=== PATIENT | female | born 1940 | race African-American/Black ===

== ENCOUNTER 2017-05-20 14:03 | Inpatient (IN) | payer MEDICARE, OTHER ==
[2017-05-20] VITALS (8 sets, daily range): BP systolic 93–151; BP diastolic 69–96
[~2017-05-20] VITALS: Ht 170.2 cm; Wt 73.9 kg
--- NOTE | 2017-05-20 14:57 | Emergency Room Report ---
History of Present Illness General Chief Complaint: Dyspnea/Respdistress Source: Patient, Family Member Present Illness HPI Patient presents with 3 days of dyspnea. She states she is out of breath even at rest. She denies any fever or cough. She does feel palpitations in her chest. Has never had this before. The patient had a stroke. At that time she did not have an irregular heartbeat and never has had an irregular heartbeat. She's not taking blood thinners this time. The stroke affected her vision and also her speech. She has good strength in all extremities. Treated for hypertension. The patient denies any chest pain, nausea, vomiting, dysuria, dizziness, rashes , easy bruising, headache. She is anxious to be in hospital. Allergies: Coded Allergies: No Known Allergies (Unverified , 05/20/17) Patient History Past Medical History: see triage record Social History: Denies: smoking Social History Narrative with daughter Reviewed Nursing Documentation: PMH: Agreed, PSxH: Agreed Nursing Documentation-PMH Past Medical History: No History, Except For Review of Systems All Other Systems: negative except mentioned in HPI Physical Exam Vital Signs Date Time Temp Pulse Resp B/P Pulse Ox O2 Delivery O2 Flow Rate FiO2 05/20/17 14:25 99.0 157 33 134/105 97 Room Air Sp02 EP Interpretation: reviewed, normal General Appearance: well appearing, no apparent distress, GCS 15 Head: normocephalic Eyes: bilateral eye normal inspection, bilateral eye other - arcus ENT: moist mucus membranes Neck: supple Respiratory: lungs clear, normal breath sounds Cardiovascular #1: tachycardia, irregularly irregular Cardiovascular #2: 2+ radial (R) Gastrointestinal: normal inspection, normal bowel sounds, non tender, no mass, non-distended Musculoskeletal: back normal, gait/station normal, normal range of motion Neurologic: alert, motor strength/tone normal, DTRs symmetric, sensory intact, cerebellar normal, normal gait, speech normal, oriented - X2 Psychiatric: anxious - somewhat spotty recent memory Skin: normal inspection, warm/dry Medical Decision Making Diagnostic Impression: Primary Impression: New onset atrial fibrillation with rapid ventricular response Additional Impressions: UTI (urinary tract infection) Qualified Codes: N30.00 - Acute cystitis without hematuria Status post stroke ER Course Patient presents with rapid atrial fibrillation. He fluid acute heart attack. In addition to that we to slow rate. He to check electrolytes and troponin. Diltiazem is been ordered. The patient has a nonfocal neurologic exam at this time. Initial EKG without acute injury. Other labs with pyuria, leukocytosis, min renal insufficiency. Given diltiazem with decrease in heart rate. Repeat EKG still a fib. No injury. Patient states still feels dyspneic. Exam against PE. Due to age, new onset a fib, continued symptoms, admit telemetry. Admit tele Dr. Kwok. Laboratory Tests Test 05/20/17 15:05 05/20/17 18:36 White Blood Count 12.6 K/UL (4.8-10.8) H Red Blood Count 4.32 M/UL (4.20-5.40) Hemoglobin 13.1 G/DL (12.0-16.0) Hematocrit 39.7 % (37.0-47.0) Mean Corpuscular Volume 92 FL (80-99) Mean Corpuscular Hemoglobin 30.2 PG (27.0-31.0) Mean Corpuscular Hemoglobin Concent 32.9 G/DL (32.0-36.0) Red Cell Distribution Width 14.9 % (11.6-14.8) H Platelet Count 240 K/UL (150-450) Mean Platelet Volume 8.5 FL (6.5-10.1) Neutrophils (%) (Auto) 73.7 % (45.0-75.0) Lymphocytes (%) (Auto) 17.6 % (20.0-45.0) L Monocytes (%) (Auto) 6.2 % (1.0-10.0) Eosinophils (%) (Auto) 1.4 % (0.0-3.0) Basophils (%) (Auto) 1.0 % (0.0-2.0) Prothrombin Time 9.3 SEC (9.30-11.50) Prothrombin Time INR 0.9 (0.9-1.1) PTT 24 SEC (23-33) Sodium Level 143 mEQ/L (135-145) Potassium Level 4.0 mEQ/L (3.4-4.9) Chloride Level 103 mEQ/L (98-107) Carbon Dioxide Level 27 mEQ/L (20-30) Anion Gap 13 (5-15) Blood Urea Nitrogen 15 mg/dL (7-23) Creatinine 1.0 mg/dL (0.5-0.9) H Estimate Glomerular Filtration Rate mL/min (>60) Glucose Level 144 mg/dL (74-106) H Calcium Level 9.4 mg/dL (8.6-10.2) Total Bilirubin < 0.2 mg/dL (0.0-1.2) Aspartate Amino Transferase (AST) 20 U/L (5-40) Alanine Aminotransferase (ALT) 11 U/L (3-33) Alkaline Phosphatase 81 U/L (35-104) Total Creatine Kinase 93 U/L (26-140) Troponin I < 0.30 ng/mL (<=0.30) Pro-B-Type Natriuretic Peptide 670 pg/mL (0-450) H Total Protein 7.3 g/dL (6.6-8.7) Albumin 3.9 g/dL (3.5-5.2) Globulin 3.4 g/dL Albumin/Globulin Ratio 1.1 (1.0-2.7) Urine Color Pale yellow Urine Appearance Slightly cloudy Urine pH 7 (4.5-8.0) Urine Specific [place] 1.005 (1.005-1.035) Urine Protein Negative (NEGATIVE) Urine Glucose (UA) Negative (NEGATIVE) Urine Ketones Negative (NEGATIVE) Urine Occult Blood Negative (NEGATIVE) Urine Nitrite Negative (NEGATIVE) Urine Bilirubin Negative (NEGATIVE) Urine Urobilinogen Normal MG/DL (0.0-1.0) Urine Leukocyte Esterase 3+ (NEGATIVE) H Urine RBC 2-4 /HPF (0 - 2) H Urine WBC 20-30 /HPF (0 - 2) H Urine Squamous Epithelial Cells Few /LPF (NONE/OCC) Urine Bacteria Few /HPF (NONE) EKG Diagnostic Results Rate: tachycardiac Rhythm: other - a fib ST Segments: no acute changes Other Impression Repeat EKG post deltiazem - A fib rate 109 - NSSTTW changes Rhythm Strip Diag. Results EP Interpretation: yes Rhythm: no PVC's, no ectopy, other - a fib RVR Chest X-Ray Diagnostic Results Chest X-Ray Diagnostic Results : Chest X-Ray Ordered: Yes # of Views/Limited/Complete: 1 View Indication: Other EP Interpretation: Yes Interpretation: no consolidation, no effusion, no pneumothorax, no acute cardiopulmonary disease Impression: No acute disease Interpreting ER Provider: Electronically signed by Tanner Rodríguez MD Last Vital Signs Date Time Temp Pulse Resp B/P Pulse Ox O2 Delivery O2 Flow Rate FiO2 05/20/17 21:27 98.6 83 20 125/69 98 Nasal Cannula 2.0 Status: improved Disposition: ADMITTED INPATIENT Condition: Serious Tanner Rodríguez M.D. May 20, 2017 14:57
[2017-05-20] MEDS ORDERED: Diltiazem 25mg/5ml IV ONE (15:00)
[2017-05-20 15:34] LABS: EOSINOPHILS % (AUTO) 1.4 % (0.0-3.0); LYMPHOCYTES % (AUTO) 17.6 % (20.0-45.0); MEAN CORPUSCULAR HEMOGLOBIN 30.2 PG (27.0-31.0); MEAN CORPUSCULAR HGB CONC 32.9 G/DL (32.0-36.0); MEAN CORPUSCULAR VOLUME 92 FL (80-99); MEAN PLATELET VOLUME 8.5 FL (6.5-10.1); MONOCYTES % (AUTO) 6.2 % (1.0-10.0); NEUTROPHILS % (AUTO) 73.7 % (45.0-75.0); PLATELET COUNT 240 K/UL (150-450); RED BLOOD COUNT 4.32 M/UL (4.20-5.40); RED CELL DISTRIBUTION WIDTH 14.9 % (11.6-14.8); WHITE BLOOD COUNT 12.6 K/UL (4.8-10.8)
--- NOTE | 2017-05-20 15:36 | Diagnostic Imaging Report ---
Indication: S. Comparison: None A single view chest radiograph was obtained. Findings: No definite infiltrate or pulmonary vascular congestion identified. The heart is enlarged. The aorta is mildly enlarged consistent with atherosclerotic vascular disease. The bones are osteopenic. Impression: No acute disease
[2017-05-20 15:39] LABS: INR 0.9 (0.9-1.1); PROTHROMBIN TIME 9.3 SEC (9.30-11.50)
[2017-05-20 15:51] LABS: TROPONIN I < 0.30 ng/mL (<=0.30)
[2017-05-20 15:55] LABS: ALANINE AMINOTRANSFERASE 11 U/L (3-33); ALBUMIN/GLOBULIN RATIO 1.1 (1.0-2.7); ANION GAP 13 (5-15); ASPARTATE AMINO TRANSFERASE 20 U/L (5-40); CALCIUM 9.4 mg/dL (8.6-10.2); CARBON DIOXIDE 27 mEQ/L (20-30); CHLORIDE 103 mEQ/L (98-107); HEMOLYSIS 46; SODIUM 143 mEQ/L (135-145); TOTAL PROTEIN 7.3 g/dL (6.6-8.7)
[2017-05-20] MEDS ORDERED: VERAPAMIL ER180 M1 PO (16:41)
[2017-05-20] MEDS ORDERED: CLOPIDOGREL75 MG ORAL (16:41)
[2017-05-20] MEDS ORDERED: HYDROCHLOROTHIA25 MG ORAL (16:41)
[2017-05-20] MEDS ORDERED: LORATADINE10 M2 PO (16:41)
[2017-05-20] MEDS ORDERED: LISINOPRIL40 MG ORAL (16:41)
[2017-05-20] MEDS ORDERED: PROTONIX20 MG ORAL (16:41)
[2017-05-20] MEDS ORDERED: PRAVASTATIN SOD20 M1 ORAL (16:41)
[2017-05-20] MEDS ORDERED: MONTELUKAST SOD10 MG ORAL (16:41)
[2017-05-20] MEDS ORDERED: LORazepam Inj 2mg/ml 1ml IV ONE (17:30)
[2017-05-20 18:51] LABS: APPEARANCE,URINE SLIGHTLY CLOUDY; KETONES,URINE NEGATIVE (NEGATIVE); LEUKOCYTE ESTERASE ,URINE 3+ (NEGATIVE); NITRITE,URINE NEGATIVE (NEGATIVE); PH,URINE 7 (4.5-8.0); PROTEIN,URINE NEGATIVE (NEGATIVE); UROBILINOGEN,URINE NORMAL MG/DL (0.0-1.0)
[2017-05-20 19:03] LABS: BACTERIA,URINE FEW /HPF; SQUAMOUS EPITHELIAL CELL,UR FEW /LPF (NONE/OCC); WBC,URINE 20-30 /HPF (0 - 2)
[2017-05-21] VITALS (7 sets, daily range): BP systolic 132–151; BP diastolic 62–90
[2017-05-21] MEDS ORDERED: Norco 5mg/325mg tab ORAL PRN (00:45)
[2017-05-21] MEDS ORDERED: LORazepam 0.5mg tab ORAL PRN (00:45)
[2017-05-21] MEDS ORDERED: Norco 10mg/325mg tab ORAL PRN (00:45)
[2017-05-21] MEDS: DuoNeb 0.5-3(2.5)mg/3ml neb HHN PRN (05:10)
[2017-05-21] MEDS ORDERED: cefTRIAXone 1 GM in D5W 55 ML IVPB ONE (05:30)
[2017-05-21] MEDS ORDERED: Heparin 5000 units/ml inj SUBQ SCH (09:00)
--- NOTE | 2017-05-21 10:11 | History and Physical ---
History of Present Illness General Date patient seen: May 21, 2017 Reason for Hospitalization: Dyspnea/Respdistress Present Illness HPI 77 y/o female with history of stroke,HTN, and hyperlipidemia presented to the ED c/o shortness of breath for last several days. She denies chest pain, palpitations, or cough. She denies fever/chills. She denies having any history of cardiac arrhythmias. Patient is confused and unable to give a good history. Allergies: Coded Allergies: No Known Allergies (Unverified , 05/20/17) Medication History Scheduled Clopidogrel* (Clopidogrel*), 75 MG ORAL DAILY, (Reported) Hydrochlorothiazide* (Hydrochlorothiazide*), 25 MG ORAL DAILY, (Reported) Lisinopril* (Lisinopril*), 40 MG ORAL DAILY, (Reported) Loratadine (Loratadine), 10 MG PO DAILY, (Reported) Montelukast Sodium* (Montelukast Sodium*), 10 MG ORAL DAILY, (Reported) Pantoprazole Sodium (Protonix), 40 MG ORAL DAILY, (Reported) Pravastatin Sod* (Pravastatin Sod*), 40 MG ORAL BEDTIME, (Reported) Verapamil Hcl (Verapamil Er), 180 MG PO DAILY, (Reported) Patient History History Provided By: Patient, Medical Record Healthcare decision maker Resuscitation status Full Code Advanced Directive on File Past Medical/Surgical History Past Medical/Surgical History: (1) Status post stroke (2) HTN (hypertension) (3) Hyperlipidemia Review of Systems All Other Systems: negative except mentioned in HPI ROS Narrative limited due to patient's mental status. Physical Exam General Appearance: WD/WN, no apparent distress, alert, confused HEENT: normocephalic, atraumatic Respiratory/Chest: decreased breath sounds Cardiovascular/Chest: regularly irregular Abdomen: non tender, soft Extremities: moderate edema Neurologic: alert, responsive Last 24 Hour Vital Signs Date Time Temp Pulse Resp B/P Pulse Ox O2 Delivery O2 Flow Rate FiO2 05/21/17 08:06 117 22 Room Air 2.0 05/21/17 07:47 97.8 95 20 132/62 100 Nasal Cannula 2.0 05/21/17 05:17 66 20 99 Nasal Cannula 2.0 28 05/21/17 05:14 28 05/21/17 05:12 64 20 99 Nasal Cannula 2.0 05/21/17 04:00 71 05/21/17 04:00 97.2 73 18 134/81 97 Nasal Cannula 2.0 05/21/17 00:30 97.0 75 20 138/72 99 Nasal Cannula 2.0 05/21/17 00:00 79 05/20/17 23:44 70 05/20/17 22:00 97.0 112 20 151/86 100 Nasal Cannula 2.0 05/20/17 21:30 97.0 112 20 151/86 100 Nasal Cannula 2.0 05/20/17 21:27 97.7 83 20 125/69 98 Nasal Cannula 2.0 05/20/17 20:30 103 20 135/96 96 Room Air 05/20/17 19:30 104 20 127/91 97 Room Air 05/20/17 18:58 99.0 92 26 128/75 94 Room Air 05/20/17 17:45 99.0 105 23 145/79 97 Room Air 05/20/17 15:21 99.0 116 19 93/79 97 Room Air 05/20/17 15:12 178 93/79 05/20/17 14:30 173 31 Room Air 05/20/17 14:30 99.0 173 31 133/84 96 Room Air 05/20/17 14:25 99.0 157 33 134/105 97 Room Air Intake and Output 05/20/17 05/21/17 19:00 07:00 Intake Total 0 ml 550 ml Balance 0 ml 550 ml Intake Oral 0 ml IV Total 550 ml # Voids 4 Laboratory Tests Test 05/20/17 15:05 05/20/17 18:36 White Blood Count 12.6 K/UL (4.8-10.8) H Red Blood Count 4.32 M/UL (4.20-5.40) Hemoglobin 13.1 G/DL (12.0-16.0) Hematocrit 39.7 % (37.0-47.0) Mean Corpuscular Volume 92 FL (80-99) Mean Corpuscular Hemoglobin 30.2 PG (27.0-31.0) Mean Corpuscular Hemoglobin Concent 32.9 G/DL (32.0-36.0) Red Cell Distribution Width 14.9 % (11.6-14.8) H Platelet Count 240 K/UL (150-450) Mean Platelet Volume 8.5 FL (6.5-10.1) Neutrophils (%) (Auto) 73.7 % (45.0-75.0) Lymphocytes (%) (Auto) 17.6 % (20.0-45.0) L Monocytes (%) (Auto) 6.2 % (1.0-10.0) Eosinophils (%) (Auto) 1.4 % (0.0-3.0) Basophils (%) (Auto) 1.0 % (0.0-2.0) Prothrombin Time 9.3 SEC (9.30-11.50) Prothromb Time International Ratio 0.9 (0.9-1.1) Activated Partial Thromboplast Time 24 SEC (23-33) Sodium Level 143 mEQ/L (135-145) Potassium Level 4.0 mEQ/L (3.4-4.9) Chloride Level 103 mEQ/L (98-107) Carbon Dioxide Level 27 mEQ/L (20-30) Anion Gap 13 (5-15) Blood Urea Nitrogen 15 mg/dL (7-23) Creatinine 1.0 mg/dL (0.5-0.9) H Estimat Glomerular Filtration Rate mL/min (>60) Glucose Level 144 mg/dL (74-106) H Calcium Level 9.4 mg/dL (8.6-10.2) Total Bilirubin < 0.2 mg/dL (0.0-1.2) Aspartate Amino Transf (AST/SGOT) 20 U/L (5-40) Alanine Aminotransferase (ALT/SGPT) 11 U/L (3-33) Alkaline Phosphatase 81 U/L (35-104) Total Creatine Kinase 93 U/L (26-140) Troponin I < 0.30 ng/mL (<=0.30) Pro-B-Type Natriuretic Peptide 670 pg/mL (0-450) H Total Protein 7.3 g/dL (6.6-8.7) Albumin 3.9 g/dL (3.5-5.2) Globulin 3.4 g/dL Albumin/Globulin Ratio 1.1 (1.0-2.7) Urine Color Pale yellow Urine Appearance Slightly cloudy Urine pH 7 (4.5-8.0) Urine Specific [place] 1.005 (1.005-1.035) Urine Protein Negative (NEGATIVE) Urine Glucose (UA) Negative (NEGATIVE) Urine Ketones Negative (NEGATIVE) Urine Occult Blood Negative (NEGATIVE) Urine Nitrite Negative (NEGATIVE) Urine Bilirubin Negative (NEGATIVE) Urine Urobilinogen Normal MG/DL (0.0-1.0) Urine Leukocyte Esterase 3+ (NEGATIVE) H Urine RBC 2-4 /HPF (0 - 2) H Urine WBC 20-30 /HPF (0 - 2) H Urine Squamous Epithelial Cells Few /LPF (NONE/OCC) Urine Bacteria Few /HPF (NONE) Height (Feet): 5 Height (Inches): 7.00 Weight (Pounds): 163 Medications Current Medications Medications (Trade) Dose Ordered Sig/Yifan Route PRN Reason Start Time Stop Time Status Last Admin Dose Admin Acetaminophen (Tylenol) 650 mg Q4H PRN ORAL Mild Pain/Temp > 100.5 05/21/17 00:45 06/20/17 00:44 Acetaminophen/ Hydrocodone Bitart ([place] 10/325) 1 ea Q4H PRN ORAL Severe Pain (Pain Scale 7-10) 05/21/17 00:45 05/28/17 00:44 Acetaminophen/ Hydrocodone Bitart ([place] 5/325) 1 tab Q4H PRN ORAL Moderate Pain (Pain Scale 4-6) 05/21/17 00:45 05/28/17 00:44 Albuterol/ Ipratropium (DuoNeb 0.5-3(2.5)mg/3ml) 3 ml Q4H PRN HHN Shortness of Breath 05/21/17 00:45 05/26/17 00:44 05/21/17 05:10 Clonidine HCl (Catapres) 0.1 mg Q6H PRN ORAL For High Blood Pressure 05/21/17 00:45 06/20/17 00:44 Heparin Sodium (Porcine) (Heparin 5000 units/ml) 5,000 units EVERY 12 HOURS SUBQ 05/21/17 09:00 06/20/17 08:59 Lorazepam (Ativan) 0.5 mg Q6H PRN ORAL Agitation 05/21/17 00:45 05/28/17 00:44 Sodium Chloride (Sodium Chloride 1000ml bag) 1,000 ml @ 100 mls/hr Q10H IV 05/20/17 15:00 06/19/17 14:59 05/21/17 01:30 Assessment/Plan Problem List: (1) New onset a-fib ICD Codes: I48.91 - Unspecified atrial fibrillation SNOMED: 73278642 (2) UTI (urinary tract infection) ICD Codes: N39.0 - Urinary tract infection, site not specified SNOMED: 75539003 Qualifiers: Qualified Codes: N30.00 - Acute cystitis without hematuria (3) Status post stroke ICD Codes: Z86.73 - Personal history of transient ischemic attack (TIA), and cerebral infarction without residual deficits SNOMED: 194317275 (4) HTN (hypertension) ICD Codes: I10 - Essential (primary) hypertension SNOMED: 38574730 (5) Hyperlipidemia ICD Codes: E78.5 - Hyperlipidemia, unspecified SNOMED: 06440062 Assessment/Plan f/u ucx. empiric Rocephin. Dr. Brown consulted for cardio/EP. Check Echo. DVT ppx. resume home meds. D/w Dr. Kwok. D/w RN. MIKE COLON May 21, 2017 10:11
[2017-05-21 10:28] LABS: BASOPHILS % (AUTO) 0.5 % (0.0-2.0); EOSINOPHILS % (AUTO) 1.1 % (0.0-3.0); LYMPHOCYTES % (AUTO) 15.2 % (20.0-45.0); MEAN CORPUSCULAR HEMOGLOBIN 29.3 PG (27.0-31.0); MEAN CORPUSCULAR HGB CONC 31.6 G/DL (32.0-36.0); MEAN CORPUSCULAR VOLUME 93 FL (80-99); MEAN PLATELET VOLUME 8.7 FL (6.5-10.1); MONOCYTES % (AUTO) 7.7 % (1.0-10.0); NEUTROPHILS % (AUTO) 75.5 % (45.0-75.0); PLATELET COUNT 229 K/UL (150-450); RED BLOOD COUNT 3.94 M/UL (4.20-5.40); RED CELL DISTRIBUTION WIDTH 14.8 % (11.6-14.8); WHITE BLOOD COUNT 9.3 K/UL (4.8-10.8)
[2017-05-21 10:55] LABS: ANION GAP 11 (5-15); CALCIUM 8.9 mg/dL (8.6-10.2); CARBON DIOXIDE 28 mEQ/L (20-30); CHLORIDE 105 mEQ/L (98-107); CREATININE 0.9 mg/dL (0.5-0.9); HEMOLYSIS 1; POTASSIUM 3.5 mEQ/L (3.4-4.9); SODIUM 144 mEQ/L (135-145)
--- NOTE | 2017-05-21 14:44 | Cardiac Electrophysiology PN ---
Subjective Subjective [id number]. Atrial fib with RVR. Xarelto< metoprolol and Flecainide. Nuclear stress test on Tuesday. ECho pending. Objective Last 24 Hour Vital Signs Date Time Temp Pulse Resp B/P Pulse Ox O2 Delivery O2 Flow Rate FiO2 05/21/17 11:27 97.6 91 20 132/89 100 Nasal Cannula 2.0 05/21/17 08:06 117 22 Room Air 2.0 05/21/17 08:00 156 05/21/17 07:47 97.8 95 20 132/62 100 Nasal Cannula 2.0 05/21/17 05:17 66 20 99 Nasal Cannula 2.0 28 05/21/17 05:14 28 05/21/17 05:12 64 20 99 Nasal Cannula 2.0 28 05/21/17 04:00 71 05/21/17 04:00 97.2 73 18 134/81 97 Nasal Cannula 2.0 05/21/17 00:30 97.0 75 20 138/72 99 Nasal Cannula 2.0 05/21/17 00:00 79 05/20/17 23:44 70 05/20/17 22:00 97.0 112 20 151/86 100 Nasal Cannula 2.0 05/20/17 21:30 97.0 112 20 151/86 100 Nasal Cannula 2.0 05/20/17 21:27 97.7 83 20 125/69 98 Nasal Cannula 2.0 05/20/17 20:30 103 20 135/96 96 Room Air 05/20/17 19:30 104 20 127/91 97 Room Air 05/20/17 18:58 99.0 92 26 128/75 94 Room Air 05/20/17 17:45 99.0 105 23 145/79 97 Room Air 05/20/17 15:21 99.0 116 19 93/79 97 Room Air 05/20/17 15:12 178 93/79 Intake and Output 05/20/17 05/21/17 19:00 07:00 Intake Total 0 ml 550 ml Balance 0 ml 550 ml Intake Oral 0 ml IV Total 550 ml # Voids 4 Laboratory Tests Test 05/20/17 15:05 05/20/17 18:36 05/21/17 09:42 White Blood Count 12.6 K/UL (4.8-10.8) H 9.3 K/UL (4.8-10.8) Red Blood Count 4.32 M/UL (4.20-5.40) 3.94 M/UL (4.20-5.40) L Hemoglobin 13.1 G/DL (12.0-16.0) 11.6 G/DL (12.0-16.0) L Hematocrit 39.7 % (37.0-47.0) 36.6 % (37.0-47.0) L Mean Corpuscular Volume 92 FL (80-99) 93 FL (80-99) Mean Corpuscular Hemoglobin 30.2 PG (27.0-31.0) 29.3 PG (27.0-31.0) Mean Corpuscular Hemoglobin Concent 32.9 G/DL (32.0-36.0) 31.6 G/DL (32.0-36.0) L Red Cell Distribution Width 14.9 % (11.6-14.8) H 14.8 % (11.6-14.8) Platelet Count 240 K/UL (150-450) 229 K/UL (150-450) Mean Platelet Volume 8.5 FL (6.5-10.1) 8.7 FL (6.5-10.1) Neutrophils (%) (Auto) 73.7 % (45.0-75.0) 75.5 % (45.0-75.0) H Lymphocytes (%) (Auto) 17.6 % (20.0-45.0) L 15.2 % (20.0-45.0) L Monocytes (%) (Auto) 6.2 % (1.0-10.0) 7.7 % (1.0-10.0) Eosinophils (%) (Auto) 1.4 % (0.0-3.0) 1.1 % (0.0-3.0) Basophils (%) (Auto) 1.0 % (0.0-2.0) 0.5 % (0.0-2.0) Prothrombin Time 9.3 SEC (9.30-11.50) Prothromb Time International Ratio 0.9 (0.9-1.1) Activated Partial Thromboplast Time 24 SEC (23-33) Sodium Level 143 mEQ/L (135-145) 144 mEQ/L (135-145) Potassium Level 4.0 mEQ/L (3.4-4.9) 3.5 mEQ/L (3.4-4.9) Chloride Level 103 mEQ/L (98-107) 105 mEQ/L (98-107) Carbon Dioxide Level 27 mEQ/L (20-30) 28 mEQ/L (20-30) Anion Gap 13 (5-15) 11 (5-15) Blood Urea Nitrogen 15 mg/dL (7-23) 14 mg/dL (7-23) Creatinine 1.0 mg/dL (0.5-0.9) H 0.9 mg/dL (0.5-0.9) Estimat Glomerular Filtration Rate mL/min (>60) mL/min (>60) Glucose Level 144 mg/dL (74-106) H 157 mg/dL (74-106) H Calcium Level 9.4 mg/dL (8.6-10.2) 8.9 mg/dL (8.6-10.2) Total Bilirubin < 0.2 mg/dL (0.0-1.2) Aspartate Amino Transf (AST/SGOT) 20 U/L (5-40) Alanine Aminotransferase (ALT/SGPT) 11 U/L (3-33) Alkaline Phosphatase 81 U/L (35-104) Total Creatine Kinase 93 U/L (26-140) Troponin I < 0.30 ng/mL (<=0.30) Pro-B-Type Natriuretic Peptide 670 pg/mL (0-450) H Total Protein 7.3 g/dL (6.6-8.7) Albumin 3.9 g/dL (3.5-5.2) Globulin 3.4 g/dL Albumin/Globulin Ratio 1.1 (1.0-2.7) Urine Color Pale yellow Urine Appearance Slightly cloudy Urine pH 7 (4.5-8.0) Urine Specific [place] 1.005 (1.005-1.035) Urine Protein Negative (NEGATIVE) Urine Glucose (UA) Negative (NEGATIVE) Urine Ketones Negative (NEGATIVE) Urine Occult Blood Negative (NEGATIVE) Urine Nitrite Negative (NEGATIVE) Urine Bilirubin Negative (NEGATIVE) Urine Urobilinogen Normal MG/DL (0.0-1.0) Urine Leukocyte Esterase 3+ (NEGATIVE) H Urine RBC 2-4 /HPF (0 - 2) H Urine WBC 20-30 /HPF (0 - 2) H Urine Squamous Epithelial Cells Few /LPF (NONE/OCC) Urine Bacteria Few /HPF (NONE) TORI CAMPA May 21, 2017 14:44
[2017-05-21] MEDS: Xarelto 10mg tab ORAL SCH (16:30)
[2017-05-21] MEDS: Metoprolol 50mg tab ORAL SCH (20:33)
[2017-05-22] VITALS: BP 125/67
--- NOTE | 2017-05-22 | Consultation ---
DATE OF CONSULTATION: 05/21/2017 CARDIOLOGY CONSULTATION REFERRING PHYSICIAN: Glenroy Kwok M.D. REASON FOR CONSULTATION: Atrial fibrillation with rapid ventricular response. HISTORY OF PRESENT ILLNESS: The patient is a very pleasant 77-year-old lady with history of hypertension, presents to the emergency room with 3 days of shortness of breath even at rest. The patient also feels palpitation. The patient never had this experience before. The patient had a stroke at that time. She had an irregular heartbeat and states that she never had irregular heartbeat. She is not on any blood thinners. The stroke has affected her vision as well as her speech. The patient was admitted and was found to be in atrial fibrillation with ventricular response of 157 beats per minute. The patient also goes in and out of atrial fibrillation and couple of times has positive sinus rhythm. PAST MEDICAL HISTORY: Include hypertension. FAMILY HISTORY: Noncontributory. SOCIAL HISTORY: She lives at home. Does not smoke or drink alcohol. REVIEW OF SYSTEM: Review of system was performed and was negative other what was mentioned in the history of present illness. PHYSICAL EXAMINATION: VITAL SIGNS: Blood pressure is 132/89, pulse ranges between 60 to 160, respirations 18, and temperature 97.6 degrees. HEAD AND NECK: Shows no JVD. LUNGS: Clear. CARDIOVASCULAR: Shows regular S1 and S2 with no gallop or murmur. ABDOMEN: Soft. EXTREMITIES: No pitting edema. LABORATORY AND DIAGNOSTIC DATA: A 12-lead EKG showed an atrial fibrillation with ventricular response rate. Labs show white count of 9.3, hemoglobin 11.2, hematocrit 36.6, and platelet count of 229,000. Sodium 144, potassium 3.5, BUN 14, creatinine 0.9, and glucose of 87. BNP is 670. Troponin is negative. INR is 0.9. ASSESSMENT AND PLAN: 1. Atrial fibrillation with rapid ventricular response. This is new onset. In the setting of patient's prior stroke pressures there is high risk of developing acute thrombolic events again. I will start the patient on Xarelto 20 mg daily. I will stop subcutaneous heparin drip. We will get an echocardiogram for ejection fraction wall motion abnormality. Also, we will start the patient on a combination of flecainide and metoprolol for better heart rate control and atrial fibrillation. 2. Hypertension. Continue metoprolol for the patient's atrial fibrillation as well. 3. History of prior stroke. We will check fasting lipid profile as well as echocardiogram for further management. Thank you very much, Dr. Kwok, for allowing me to participate in care of this patient. Please do not hesitate to contact me for any questions regarding my evaluation. Neel Brown M.D. DR: WU JOB#: [id number] CC:
[2017-05-22 04:00] VITALS: BP 121/56
[2017-05-22 08:00] VITALS: BP 134/75
[2017-05-22] MEDS: Metoprolol 50mg tab ORAL SCH ×2 (08:12→21:31)
[2017-05-22] MEDS: cefTRIAXone 1 GM in D5W 55 ML IVPB SCH (08:13)
--- NOTE | 2017-05-22 10:46 | Nephrology Progress Note ---
Assessment/Plan Problem List: (1) New onset a-fib (2) UTI (urinary tract infection) (3) Status post stroke (4) HTN (hypertension) (5) Hyperlipidemia Plan cardio/ep following. monitor closely. cont telemetry. f/u ucx. d/w Dr. Kwok. Subjective Subjective sob slightly better at times. confused. Objective Objective Last 24 Hour Vital Signs Date Time Temp Pulse Resp B/P Pulse Ox O2 Delivery O2 Flow Rate FiO2 05/22/17 08:12 71 141/74 05/22/17 08:04 63 18 Room Air 05/22/17 08:00 73 05/22/17 04:00 63 05/22/17 04:00 96.9 62 20 121/56 99 Nasal Cannula 2.0 05/22/17 00:00 73 05/22/17 00:00 96.4 78 20 125/67 99 Nasal Cannula 2.0 05/21/17 20:33 112 133/90 05/21/17 20:04 97.9 112 22 133/90 99 Nasal Cannula 2.0 05/21/17 19:48 94 05/21/17 19:30 134 05/21/17 19:01 101 20 Nasal Cannula 3.0 32 05/21/17 17:41 186 05/21/17 17:05 172 05/21/17 16:53 88 05/21/17 16:00 137 05/21/17 15:31 98.2 87 20 134/64 99 Nasal Cannula 2.0 05/21/17 12:00 87 05/21/17 11:27 97.6 91 20 132/89 100 Nasal Cannula 2.0 Intake and Output 05/21/17 05/22/17 19:00 07:00 Intake Total 1220 ml Balance 1220 ml Intake Oral 720 ml IV Total 500 ml # Voids 2 4 # Bowel Movements 1 Height (Feet): 5 Height (Inches): 7.00 Weight (Pounds): 163 General Appearance: no apparent distress Cardiovascular: regularly irregular Respiratory/Chest: decreased breath sounds Abdomen: non tender, soft Extremities: trace edema Neurologic: alert, responsive MIKE COLON May 22, 2017 10:46
[2017-05-22 12:00] VITALS: BP 130/60
--- NOTE | 2017-05-22 13:18 | Cardiac Electrophysiology PN ---
Assessment/Plan Assessment/Plan 1. Atrial fibrillation with rapid ventricular response. In the setting of patient's prior stroke ,there is high risk of developing acute thrombolic events again. Continue Xarelto 20 mg daily, change flecainide to 50 tid and metoprolol 50 bid. 2. Hypertension. Continue metoprolol 50 bid 3. History of prior stroke. 4. 2D echo pending DW RN and sister Subjective Subjective Still in and out of atrial fib. No chest pain or SOB today.Sister and RN at bedside. Objective Last 24 Hour Vital Signs Date Time Temp Pulse Resp B/P Pulse Ox O2 Delivery O2 Flow Rate FiO2 05/22/17 08:12 71 141/74 05/22/17 08:04 63 18 Room Air 05/22/17 08:00 73 05/22/17 08:00 98.1 74 19 134/75 99 Room Air 05/22/17 04:00 63 05/22/17 04:00 96.9 62 20 121/56 99 Nasal Cannula 2.0 05/22/17 00:00 73 05/22/17 00:00 96.4 78 20 125/67 99 Nasal Cannula 2.0 05/21/17 20:33 112 133/90 05/21/17 20:04 97.9 112 22 133/90 99 Nasal Cannula 2.0 05/21/17 19:48 94 05/21/17 19:30 134 05/21/17 19:01 101 20 Nasal Cannula 3.0 32 05/21/17 17:41 186 05/21/17 17:05 172 05/21/17 16:53 88 05/21/17 16:00 137 05/21/17 15:31 98.2 87 20 134/64 99 Nasal Cannula 2.0 Intake and Output 05/21/17 05/22/17 19:00 07:00 Intake Total 1220 ml Balance 1220 ml Intake Oral 720 ml IV Total 500 ml # Voids 2 4 # Bowel Movements 1 Microbiology Date/Time Source Procedure Growth Status 05/20/17 18:36 Urine,Clean Catch Urine Culture - Preliminary Mixed Gram Positive Organism Resulted Objective HEAD AND NECK: Shows no JVD. LUNGS: Clear. CARDIOVASCULAR: Shows regular S1 and S2 with no gallop or murmur. ABDOMEN: Soft. EXTREMITIES: No pitting edema. TORI CAMPA May 22, 2017 13:18
[2017-05-22 16:00] VITALS: BP 131/66
[2017-05-22] MEDS: Xarelto 10mg tab ORAL SCH (16:52)
--- NOTE | 2017-05-22 17:11 | Cardiology Report ---
APPROVED REPORT EXAM: Two-dimensional and M-mode echocardiogram with Doppler and color Doppler. INDICATION Arrhythmia M-Mode DIMENSIONS IVSd1.0 (0.7-1.1cm)Left Atrium (MM)4.5 (1.6-4.0cm) LVDd5.0 (3.5-5.6cm)Aortic Root2.5 (2.0-3.7cm) PWd1.0 (0.7-1.1cm)Aortic Cusp Exc.1.7 (1.5-2.0cm) LVDs3.9 (2.5-4.0cm) PWs1.0 cm Normal left ventricular chamber size, systolic function and wall motion. Left ventricular ejection fraction estimated to be 50-55%. No evidence of left ventricular hypertrophy. No evidence of pericardial fat or effusion. Left atrial enlargement. Focal aortic valve sclerosis with adequate cusp excursion Thickened mitral valve leaflets with normal excursion. Mitral annulus and aortic root calcification. Pulmonic valve not well visualized. Normal tricuspid valve structure. IVC is normal in size with physiologic collapse. A color flow and spectral Doppler study was performed and revealed: Moderate aortic regurgitation. Mild mitral regurgitation. Left ventricular diastolic dysfunction not obtainable due to arrhythmia. Mild tricuspid regurgitation. Tricuspid systolic velocities suggests peak right ventricular systolic pressure of 22 mmHg
[2017-05-22 20:04] VITALS: BP 125/67
[2017-05-22] MEDS: DuoNeb 0.5-3(2.5)mg/3ml neb HHN PRN (20:30)
[2017-05-23] VITALS: BP 128/69
[2017-05-23] MEDS: DuoNeb 0.5-3(2.5)mg/3ml neb HHN PRN (03:05)
[2017-05-23 04:25] VITALS: BP 134/78
[2017-05-23 07:46] VITALS: BP 159/72
[2017-05-23] MEDS: cefTRIAXone 1 GM in D5W 55 ML IVPB SCH (09:59)
[2017-05-23] MEDS: Metoprolol 50mg tab ORAL SCH (10:00)
[2017-05-23 11:32] VITALS: BP 158/82
--- NOTE | 2017-05-23 12:03 | Cardiology Report ---
APPROVED REPORT EKG Measurement Heart [id number] Sinus rhythm with premature atrial complexes Nonspecific T wave abnormality Prolonged QT Abnormal ECG
--- NOTE | 2017-05-23 12:03 | Cardiology Report ---
APPROVED REPORT EKG Measurement Heart [id number] Atrial fibrillation Anterior infarct, age undetermined Abnormal ECG
--- NOTE | 2017-05-23 13:30 | Consultation ---
Consult Note Consult Note DATE OF CONSULTATION: 05/23/2017 PULMONARY CONSULTATION REFERRING PHYSICIAN: Glenroy Kwok M.D. REASON FOR CONSULTATION: Asthma. HISTORY OF PRESENT ILLNESS: The patient is a very pleasant 77-year-old lady with history of hypertension, presents to the emergency room with 3 days of shortness of breath even at rest. The patient also feels palpitation. The patient never had this experience before. The patient had a stroke at that time. She had an irregular heartbeat and states that she never had irregular heartbeat. She is not on any blood thinners. The stroke has affected her vision as well as her speech. The patient was admitted and was found to be in atrial fibrillation with ventricular response of 157 beats per minute. She has a history of asthma and is on Singulair. PAST MEDICAL HISTORY: Include hypertension.Asthma FAMILY HISTORY: Noncontributory. SOCIAL HISTORY: She lives at home. Does not smoke or drink alcohol. REVIEW OF SYSTEM: Review of system was performed and was negative other what was mentioned in the history of present illness. PHYSICAL EXAMINATION: VITAL SIGNS: Blood pressure is 132/89, pulse ranges between 60 to 160, respirations 18, and temperature 97.6 degrees. HEAD AND NECK: Shows no JVD. LUNGS: Clear. CARDIOVASCULAR: Shows regular S1 and S2 with no gallop or murmur. ABDOMEN: Soft. EXTREMITIES: No pitting edema. LABORATORY AND DIAGNOSTIC DATA: A 12-lead EKG showed an atrial fibrillation with ventricular response rate. Labs show white count of 9.3, hemoglobin 11.2, hematocrit 36.6, and platelet count of 229,000. Sodium 144, potassium 3.5, BUN 14, creatinine 0.9, and glucose of 87. BNP is 670. Troponin is negative. INR is 0.9. ASSESSMENT AND PLAN: 1. Atrial fibrillation with rapid ventricular response. Start Xarelto 20 mg daily. I 2. Hypertension. Continue metoprolol 3. History of prior stroke. 4. Asthma; stable Thank you very much, Dr. Kwok, for allowing me to participate in care of this patient. Please do not hesitate to contact me for any questions regarding my evaluation. Akhil Tirmizi, M.D. Tirmizi,Akhil Hiro MD May 23, 2017 13:30
--- NOTE | 2017-05-24 10:38 | Discharge Summary ---
Discharge Summary Hospital Course Date of Admission May 20, 2017 at 16:13 Date of Discharge May 23, 2017 at 11:50 Admitting Diagnosis NEW ONSET AFIB W/RVR HPI Tracy Ambriz is a 77 year old female who was admitted on May 20, 2017 at 16: 13 for New Onset Atrial Fibrillation With Rapid Hospital Course dc summary #[id number] Discharge Condition Upon Discharge: stable Discharge Disposition Patient left AMA Discharge Diagnoses: Discharge Instructions Discharge Instructions Special Instructions I have been assigned to complete a D/C Summary on this account. I was not involved in the patient management Guadalupe Muñoz NP ([place]) May 24, 2017 10:38
--- NOTE | 2017-05-24 13:31 | Discharge Summary 2 SIG ---
DATE OF ADMISSION: 05/20/2017 DATE OF SIGNING AGAINST MEDICAL ADVICE: 05/23/2017 HISTORY OF PRESENT ILLNESS: 77-year-old female with history of hypertension and hyperlipidemia, presented to emergency room with complaint of short of breath for three days, even at rest. She denied fever or chills. She denied cough. She felt palpitations in her chest. She never had this sensation before. The patient with history of stroke in the past. The patient never had history of irregular heartbeat. She was not taking any blood thinners at that time. The stroke was affecting her vision and her speech, but she had good strength in all of her extremities. Workup in the emergency room revealed heart rate of 157, pulse oximetry was stable on room air. EKG showed atrial fibrillation with rapid ventricular response. Neurological exam was nonfocal. Cardizem given for rate control with small improvement. EKG revealed no acute ischemic changes. Troponin was negative. Urinalysis revealed pyuria, +3 leukocyte esterase, and few bacteria. WBC -12.6. Troponin negative. Pro BNP -670. The patient was admitted for further management. ADMITTING DIAGNOSES: 1. New onset of atrial fibrillation with rapid ventricular response. 2. Possible urinary tract infection. 3. History of stroke. 4. Hypertension. 5. Hyperlipidemia. HOSPITAL STAY: Pulmonology and cardiology consults were requested. Echocardiogram revealed ejection fraction of 50% to 55%, right ventricular systolic pressure of 22, moderate aortic regurgitation, and no left ventricular hypertrophy. Chest x-ray revealed no evidence of acute cardiopulmonary pathology. Heart rate was stabilized with beta nicholas and blood pressure was managed with beta-nicholas, and was stable. The patient was started on anticoagulation with Xarelto. The patient was started on flecainide. Leukocytosis resolved. Rate controlled. [employer] closely followed. The patient was asymptomatic. Per humane agent, the patient had high risk for developing acute thrombotic events again given history of prior stroke, and he recommended to continue Xarelto. Urine culture grew mixed gram-positive organism, colony count 80,000 to 90,000. Empiric antibiotics were discontinued which were initially started for possible UTI. The patient was waiting for clearance from cardiology and pulmonology for discharge; however, the patient decided to sign against medical advice before cleared for discharge. Risks and consequences of signing against medical advice discussed with the patient and her niece on the bedside. The patient left against medical advice accompanied by her niece. FINAL DIAGNOSES: 1. New onset of atrial fibrillation with rapid ventricular response. 2. History of stroke. 3. Hypertension. 4. Hyperlipidemia. Glenroy Kwok M.D. I have been assigned to dictate discharge summary on this account and I was not involved in the patient's management. Guadalupe WareEllis Island Immigrant HospitalGeri Longoria DR: Robert JOB#: [id number] CC: EFE
--- NOTE | 2017-05-25 16:31 | Cardiology Report ---
APPROVED REPORT EKG Measurement Heart [id number] Atrial fibrillation with rapid ventricular response Nonspecific ST and T wave abnormality Abnormal ECG
== END 2017-05-23 11:50 | disposition left against medical advice (07) | DRG 309 ==
LOC: EMR 15:30 → 2E 16:13 → EDBEDREQ 20:51
DX: I48.91 Unspecified atrial fibrillation (principal); N39.0 Urinary tract infection, site not specified; I35.1 Nonrheumatic aortic (valve) insufficiency; Z86.73 Personal history of transient ischemic attack (TIA), and cerebral infarction without residual deficits; Z79.01 Long term (current) use of anticoagulants; I10 Essential (primary) hypertension; E78.5 Hyperlipidemia, unspecified; J45.909 Unspecified asthma, uncomplicated
CPT/HCPCS: 36415; 71010; 80048; 80053; 81003; 82550; 83880; 84484; 85025; 85379; 85610; 85730; 87086; 93005; 93306; 94640; 94664; 94760; J7620